=== PATIENT | female | born 1965 | race Caucasian/White ===

== ENCOUNTER 2018-07-30 10:07 | Day surgery (SDC) | payer OTHER ==
[2018-07-29 16:43] VITALS: BMI 33.6
[2018-07-30] MEDS ORDERED: Oxymetazoline HCl 0.05% ( 15 ML ) ONE ×2 (10:33→13:29)
[2018-07-30] MEDS ORDERED: Midazolam HCl 2 mg/2 ml Vial ONE (11:45)
[2018-07-30] MEDS ORDERED: Lidocaine 1% w/Epinephrine 1:100K 20 ML VIAL ONE (13:29)
[2018-07-30] MEDS ORDERED: Bacitracin Zinc Ointment 30 gm TUBE ONE (13:29)
[2018-07-30] MEDS ORDERED: Fentanyl 100 MCG/2 ML VIAL ONE ×2 (13:29→14:58)
[2018-07-30] MEDS ORDERED: diphenhydrAMINE 50 MG/ML VIAL ONE (15:11)
[2018-07-30] MEDS ORDERED: Lidocaine 1% PF 5 ML VIAL ONE (15:23)
[2018-07-30] MEDS ORDERED: Dexamethasone 20 MG/5 ML VIAL ONE (15:23)
[2018-07-30] MEDS ORDERED: Rocuronium Bromide 10 MG/ML (10ML VIAL) ONE (15:23)
[2018-07-30] MEDS ORDERED: PROPOFOL 200 MG/20 ML VIAL ONE (15:23)
[2018-07-30] MEDS ORDERED: Ondansetron PF 4 MG/2 ML Vial ONE (15:23)
[2018-07-30] MEDS ORDERED: Glycopyrrolate 0.2 MG/ML 5 ML SYRINGE ONE (15:23)
[2018-07-30] MEDS ORDERED: traMADol HCl 50 MG TAB ONE (16:23)
--- NOTE | 2018-07-30 20:51 | OP ---
DATE OF PROCEDURE: 07/30/2018 PREOPERATIVE DIAGNOSES: 1. Chronic frontal sinusitis. 2. Chronic sphenoidal sinusitis. 3. Chronic maxillary sinusitis. 4. Allergic fungal sinusitis. POSTOPERATIVE DIAGNOSES: 1. Chronic frontal sinusitis. 2. Chronic sphenoidal sinusitis. 3. Chronic maxillary sinusitis. 4. Allergic fungal sinusitis. PROCEDURES PERFORMED: 1. Bilateral endoscopic sinus surgery frontal sinusotomy with removal of tissue. 2. Bilateral endoscopic sinus surgery sphenoidotomies with removal of tissue. 3. Cranial base image-guided [employer] surgical navigation. ESTIMATED BLOOD LOSS: 10 mL. COMPLICATIONS: None. ANESTHESIA: GETA. DESCRIPTION OF PROCEDURE: The patient was taken to the operating room and placed supine on table. General endotracheal anesthesia was obtained by the anesthesia staff. The tube was secured in the left lower lip. The patient was placed in a beach chair position. Following this, the [employer] image-guided system was then set up and calibrated. It was noted to be within 1 to 2 mm of accuracy. Following this, the nasal cavity was inspected using the 0-degree endoscope. The previous maxillary ostia and ethmoidectomies were intact. There was some purulent drainage noted from the frontal sinus area bilaterally and from the sphenoethmoidal recess bilaterally. Following this, using the 0-degree scope and the 0-degree image-guided [employer] tip suction, the approach to the sphenoid sinus was made just medial to the middle turbinates and the posterior nasal wall was identified confirming proper placement with [employer] system and sphenoidotomies were created with a [employer] tip suction. Following this, a 0-degree microdebrider was used to medially and inferiorly widen the sphenoidotomies bilaterally. There was fungal debris present in the sphenoid sinuses, which was irrigated and suctioned with curved and straight suctions. Also, cultures were taken. Following this, a 70-degree endoscope and the curved image-guided microdebrider blade were then used to further open the frontal recess and frontal sinus ostia cells. Scarred up areas and bone tissue were removed. There was noted to be thick fungal debris present in the frontal sinuses, which was suctioned and irrigated using curved suction. The patient tolerated the procedure well. Nasal cavity was irrigated. Job ID: [id number]
--- NOTE | 2018-07-31 07:44 | EKG ---
Test Reason : PREOP Blood Pressure : / mmHG Vent. Rate : 055 BPM Atrial Rate : 055 BPM P-R Int : 200 ms QRS Dur : 084 ms QT Int : 410 ms P-R-T Axes : 019 017 017 degrees QTc Int : 392 ms Sinus bradycardia Otherwise normal ECG When compared with ECG of 22-DEC-2009 11:52, Premature atrial complexes are no longer Present QT has shortened Confirmed by SUE RODGERS ([id number]) on 07/31/2018 7:44:15 AM Referred By: ORLANDO Confirmed By:SUE RODGERS
== END 2018-07-30 16:55 | disposition home or self-care (01) ==
LOC: SDC 10:07
PROVIDERS: ATTEND Otolaryngology Plastic Surgery within the Head & Neck
PROC: 8E09XBZ Computer Assisted Procedure of Head and Neck Region (ICD-10-PCS; principal; 2018-07-30)
PROC: 09BT8ZZ Excision of Left Frontal Sinus, Via Natural or Artificial Opening Endoscopic (ICD-10-PCS; principal; 2018-07-30)
PROC: 09BX8ZZ Excision of Left Sphenoid Sinus, Via Natural or Artificial Opening Endoscopic (ICD-10-PCS; principal; 2018-07-30)
PROC: 09BW8ZZ Excision of Right Sphenoid Sinus, Via Natural or Artificial Opening Endoscopic (ICD-10-PCS; principal; 2018-07-30)
PROC: 09BS8ZZ Excision of Right Frontal Sinus, Via Natural or Artificial Opening Endoscopic (ICD-10-PCS; principal; 2018-07-30)
DX: J32.8 Other chronic sinusitis (principal); J30.89 Other allergic rhinitis; J34.3 Hypertrophy of nasal turbinates; E78.00 Pure hypercholesterolemia, unspecified; J45.909 Unspecified asthma, uncomplicated; K21.9 Gastro-esophageal reflux disease without esophagitis; E03.9 Hypothyroidism, unspecified; F17.200 Nicotine dependence, unspecified, uncomplicated; R43.8 Other disturbances of smell and taste; Z79.51 Long term (current) use of inhaled steroids; Z79.82 Long term (current) use of aspirin; Z79.899 Other long term (current) drug therapy; Z88.0 Allergy status to penicillin; Z88.2 Allergy status to sulfonamides; Z88.5 Allergy status to narcotic agent; Z98.890 Other specified postprocedural states
CPT/HCPCS: 85014; 87070; 87205; 93005; 93010; J1100; J1200; J2001; J2250; J2405; J2704; J3010